=== PATIENT | male | born 1960 | race Caucasian/White ===

== ENCOUNTER → 2020-04-06 | Outpatient (CLI) | payer OTHER ==
[~2020-04-06] MED LIST: ACET-1600 PO; AMLO-211 PO; ASCO500T8 PO; ATOR40TA78 PO; FAMO-79 PO; GLUC15006 PO; HYDR25TA6 PO; IBUP-1223 PO; MULT-717 PO; NAPR220C2 PO; UBID1CAP43 PO; ZINC50CA PO; chondroitin PO
[2020-04-06 09:07] LABS: ALANINE AMINOTRANSFERASE 58 U/L (12-78); ALBUMIN 4.3 g/dL (3.4-5.0); ANION GAP 4 mmol/L (5-15); CALCIUM 9.3 mg/dL (8.5-10.1); CHLORIDE 108 mmol/L (98-107)
[2020-04-06 09:09] LABS: ALKALINE PHOSPHATASE 83 U/L (45-117); BILIRUBIN,TOTAL 0.6 mg/dL (0.2-1.0); TOTAL PROTEIN 7.5 g/dL (6.4-8.2)
== END | disposition home or self-care (01) ==
LOC: STAR 08:04
PROVIDERS: ATTEND Orthopaedic Surgery
DX: Z01.812 Encounter for preprocedural laboratory examination (principal); S43.432A Superior glenoid labrum lesion of left shoulder, initial encounter; M75.122 Complete rotator cuff tear or rupture of left shoulder, not specified as traumatic; M75.42 Impingement syndrome of left shoulder; X58.XXXA Exposure to other specified factors, initial encounter; Y93.89 Activity, other specified; Y99.8 Other external cause status; Z20.828 Contact with and (suspected) exposure to other viral communicable diseases; Y92.89 Other specified places as the place of occurrence of the external cause
CPT/HCPCS: 80053; 87635

== ENCOUNTER 2020-04-12 10:19 | Day surgery (SDC) | payer OTHER ==
[~2020-04-12] VITALS: Ht 170.2 cm; Wt 117.7 kg
[2020-04-12 10:55] VITALS: BP 137/82
[2020-04-12] MEDS ORDERED: CHLORHEXIDINE 15 ML UDC MM ONE (11:00)
[2020-04-12] MEDS ORDERED: ACETAMINOPHEN 500 MG TABLET PO ONE (11:00)
[2020-04-12] MEDS ORDERED: LACTATED RINGERS 1,000 ML IV SCH (11:00)
[2020-04-12] MEDS ORDERED: FENTANYL PF 100 MCG/2ML ONE ×4 (11:00→15:05)
[2020-04-12] MEDS ORDERED: MIDAZOLAM 1 MG/ML, 2ML ONE (11:00)
[2020-04-12] MEDS ORDERED: SODIUM CHLORIDE 0.9% PF 10ML ONE (11:01)
[2020-04-12] MEDS ORDERED: BUPIVACAINE/PF 0.5% ONE (11:06)
[2020-04-12] MEDS ORDERED: BUPIVACAINE/PF 0.25% ONE (11:19)
[2020-04-12] MEDS ORDERED: EPINEPHRINE TOPICAL SOLN 1 MG/ML, 30ML ONE (11:19)
[2020-04-12] MEDS ORDERED: CLINDAMYCIN 150 MG/ML, 6ML ONE (12:35)
[2020-04-12] MEDS ORDERED: HYDROmorphone 1 MG/ML, 1ML INJ IVPush PRN (13:00)
[2020-04-12] MEDS ORDERED: PROMETHAZINE 25 MG/ML, 1ML IVPush PRN (13:00)
[2020-04-12] MEDS ORDERED: hydrALAzine 20 MG/ML, 1ML IV PRN (13:00)
[2020-04-12] MEDS ORDERED: LABETALOL 5MG/ML, 20ML IV PRN (13:00)
[2020-04-12] MEDS ORDERED: ONDANSETRON 2MG/ML, 2ML IVPush PRN (13:00)
[2020-04-12] MEDS ORDERED: EPHEDRINE 50 MG/ML, 1ML IVPush PRN (13:00)
[2020-04-12] MEDS ORDERED: KETOROLAC 30 MG/1 ML ONE (13:22)
[2020-04-12] MEDS ORDERED: LIDOCAINE-MPF 2% ,5ML ONE (13:22)
[2020-04-12] MEDS ORDERED: DEXAMETHASONE 4 MG/ML, 5ML ONE (13:22)
[2020-04-12] MEDS ORDERED: CEFAZOLIN 1,000 MG ONE (13:23)
[2020-04-12] MEDS ORDERED: PROPOFOL 10 MG/ML, 20ML ONE (13:23)
[2020-04-12] MEDS ORDERED: ONDANSETRON 2MG/ML, 2ML ONE (13:23)
[2020-04-12] MEDS ORDERED: SUCCINYLCHOLINE 20 MG/ML, 10ML ONE (13:23)
[2020-04-12] MEDS ORDERED: OXYcodone 5 MG/5 ML ORAL.SOL UDC ONE (14:23)
[2020-04-12] MEDS: FENTANYL PF 100 MCG/2ML IV PRN ×4 (14:25→15:25)
[2020-04-12] MEDS: OXYcodone 5 MG/5 ML ORAL.SOL UDC PO PRN ×2 (14:49→15:15)
== END 2020-04-12 16:45 | disposition home or self-care (01) ==
LOC: OUT 10:19
PROVIDERS: ATTEND Orthopaedic Surgery
DX: S43.432A Superior glenoid labrum lesion of left shoulder, initial encounter (principal); S46.112A Strain of muscle, fascia and tendon of long head of biceps, left arm, initial encounter; M75.42 Impingement syndrome of left shoulder; M94.212 Chondromalacia, left shoulder; M75.52 Bursitis of left shoulder; M25.712 Osteophyte, left shoulder; I10 Essential (primary) hypertension; E78.5 Hyperlipidemia, unspecified; G89.18 Other acute postprocedural pain; Z79.899 Other long term (current) drug therapy; Z87.891 Personal history of nicotine dependence; X50.1XXA Overexertion from prolonged static or awkward postures, initial encounter; Y93.89 Activity, other specified; Y92.89 Other specified places as the place of occurrence of the external cause; Y99.8 Other external cause status
CPT/HCPCS: 29823; 29826; 64415; J0330; J0690; J1100; J1885; J2250; J2405; J2704; J3010; J7120